=== PATIENT | male | born 1955 | race Two or more races ===

== ENCOUNTER 2019-02-25 09:50 | Day surgery (SDC) | payer BC ==
[~2019-02-25 09:50] MED LIST: PROPOFOL INJ 200 MG/20 ML VIAL IV ONE
[2019-02-25 11:04] VITALS: BP 121/66
--- NOTE | 2019-02-25 12:39 | Operative Report ---
Operative Report DATE OF SURGERY: 02/25/19 Operative Report: The risks, benefits and alternatives of the procedure including the risk of bleeding, perforation requiring surgery have been explained to the patient in detail and informed consent has been obtained. The patient is placed in the left, lateral decubital position. Timeout was called. Propofol medication is administered. Rectal examination is done which did not reveal any masses, tears or fissures. An Olympus videoscope was introduced into the patient's rectum. Scope was then carefully advanced all the way to the cecum. The cecum was identified by the usual anatomical landmarks including the ileocecal valve as well as the appendiceal office. Photodocumentation is obtained. The scope was then sequentially pulled back via the various segments of the colon including the ascending colon, hepatic flexure, transverse colon, splenic flexure, desce nding colon and finally into the rectosigmoid portions of the colon. Retroflexion maneuvers performed. PREOPERATIVE DIAGNOSIS: Colorectal cancer screening POSTOPERATIVE DIAGNOSIS: Cecal polyp in the colon removed via snare polypectomy and retrieved. Internal hemorrhoids OPERATION: Colonoscopy with snare polypectomy SURGEON: ANTONETTE SERRANO ANESTHESIA: LMAC TISSUE REMOVED OR ALTERED: As noted above. COMPLICATIONS: None. ESTIMATED BLOOD LOSS: None. INTRAOPERATIVE FINDINGS: As noted above. PROCEDURE: Patient tolerated the procedure well. No immediate postprocedure complications are noted. Patient is discharged in good condition. Discharge date 02/25/2019. Discharge diet: Regular. Discharge activity: Regular. 2 to 3-week follow-up to discuss findings. Patient is instructed to call the office or proceed to the emergency room should there be any further problems or questions. Wait on the pathology. 5-year surveillance colonoscopy.
== END 2019-02-25 11:04 | disposition home or self-care (01) ==
LOC: END 09:50
PROVIDERS: ATTEND Internal Medicine Gastroenterology
DX: Z12.11 Encounter for screening for malignant neoplasm of colon (principal); D12.0 Benign neoplasm of cecum; Z79.899 Other long term (current) drug therapy; K64.8 Other hemorrhoids
CPT/HCPCS: 45385; 82962; 88305 ×2; J2704; 811

== ENCOUNTER 2019-10-08 16:45 | Emergency (ER) | payer BC ==
[2019-10-08] MEDS ORDERED: HYDROCODONE/ACETAMINOPHEN 5-325 MG TABLET PO ONE (17:16)
[2019-10-08] MEDS ORDERED: DIPH/PERTUSS(ACELL)/TETANUS VAC/PF 0.5 ML SYR (>=10YO) IM ONE (17:16)
--- NOTE | 2019-10-08 17:20 | ER Document Report ---
ED Medical Screen (RME) - General Chief Complaint: Laceration Stated Complaint: FINGER LACERATION Time Seen by Provider: 10/08/19 17:03 Primary Care Provider: CECILY LOPEZ MD [Primary Care Provider] - Follow up as needed Mode of Arrival: Ambulatory Information source: Patient Notes: HPI; 64-year-old male past medical history significant for diabetes presents to the emergency room with a laceration to his left middle finger. 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 Unknown last tetanus shot. Patient is right-handed. Bleeding persistent. No medications for symptoms. Information was obtained through bead forming machine operator #[id number] PE: Alert and oriented x3, moderate distress noted. Lungs: Clear to auscultation without rales, rhonchi, wheezes. Heart: Tachycardic without murmurs, rubs, gallops. Positive radial pulse. Unable to fully evaluate wound in triage. Eating persistent. I have greeted and performed a rapid initial assessment of this patient. A comprehensive ED assessment and evaluation of the patient, analysis of test results and completion of the medical decision making process will be conducted by additional ED providers. I have specifically instructed the patient or family members with the patient to immediately return to any nursing staff should anything change in the patient's condition or with their chief complaint. TRAVEL OUTSIDE OF THE [place] IN LAST 30 DAYS: No - Related Data Allergies/Adverse Reactions: No Known Allergies Allergy (Unverified 02/25/19 10:05) Past Medical History - Social History Frequency of alcohol use: None Drug Abuse: None - Past Medical History Cardiac Medical History: Reports: Hx Hypertension Denies: Hx Coronary Artery Disease, Hx Heart Attack Pulmonary Medical History: Denies: Hx Asthma, Hx Bronchitis, Hx COPD, Hx Pneumonia Neurological Medical History: Denies: Hx Cerebrovascular Accident, Hx Seizures Endocrine Medical History: Reports: Hx Diabetes Mellitus Type 2 Musculoskeltal Medical History: Denies Hx Arthritis - Immunizations Hx Diphtheria, Pertussis, Tetanus Vaccination: No Physical Exam - Vital signs Vitals: Temp Pulse Resp BP Pulse Ox 98.5 F 103 H 20 135/80 H 96 10/08/19 16:51 10/08/19 16:51 10/08/19 16:51 10/08/19 16:51 10/08/19 16:51 Course - Vital Signs Vital signs: Temp Pulse Resp BP Pulse Ox 98.5 F 103 H 20 135/80 H 96 10/08/19 17:07 10/08/19 16:51 10/08/19 16:51 10/08/19 16:51 10/08/19 16:51 Doctor's Discharge - Discharge Referrals: CECILY LOPEZ MD [Primary Care Provider] - Follow up as needed
--- NOTE | 2019-10-08 17:49 | RADIOLOGY REPORT (SQ) ---
EXAM DESCRIPTION: FINGER LEFT IMAGES COMPLETED DATE/TIME: 10/08/2019 5:28 pm REASON FOR STUDY: laceration left middle finger COMPARISON: None. NUMBER OF VIEWS: Three views. TECHNIQUE: AP, lateral, and oblique images acquired of the left third finger. LIMITATIONS: None. FINDINGS: MINERALIZATION: Normal. BONES: No acute fracture or dislocation. No worrisome bone lesions. SOFT TISSUES: No soft tissue swelling. No foreign body. OTHER: No other significant finding. IMPRESSION: 1. NO RADIOGRAPHIC EVIDENCE OF ACUTE INJURY. 2. No opaque foreign body. TECHNICAL DOCUMENTATION: JOB ID: [id number] 2010 [employer]- All Rights Reserved Reading location - IP/workstation name: [email or web address]
--- NOTE | 2019-10-08 18:02 | ER Document Report ---
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 Small amount of bleeding noted. Pt rates pain at 4 out of 5. Color WNL, cap refill < 3 seconds. Pt AOX4, NAD. respirations e/u. Medical hx: DM2, NKDA my notes 64-year-old Maltese male arrives with chief complaint of laceration to his left middle finger pad as he was cutting some hedges and bushes with his tremor. He accidentally cut his tip of his finger and to parallel lacerations of his pad and nail around 1.5 cm length each. Bleeding is controlled by time of arrival. Patient has full range of motion and good sensation to all extremities including his injured finger. Patient reports he is up-to-date on his shots like tetanus. TRAVEL OUTSIDE OF THE [place] IN LAST 30 DAYS: No - HPI Onset: Just prior to arrival Onset/Duration: Sudden, Persistent Quality of pain: Achy Severity: Mild Pain Level: 1 Associated symptoms: None Exacerbated by: Denies Relieved by: Denies Similar symptoms previously: No Recently seen / treated by doctor: No - Related Data Allergies/Adverse Reactions: No Known Allergies Allergy (Verified 10/08/19 17:52) Past Medical History - General Information source: Patient - Social History Smoking Status: Never Smoker Cigarette use (# per day): No Chew tobacco use (# tins/day): No Smoking Education Provided: No Frequency of alcohol use: None Drug Abuse: None Lives with: Family Family History: Reviewed & Not Pertinent Patient has suicidal ideation: No Patient has homicidal ideation: No - Past Medical History Cardiac Medical History: Reports: Hx Hypertension Denies: Hx Coronary Artery Disease, Hx Heart Attack Pulmonary Medical History: Denies: Hx Asthma, Hx Bronchitis, Hx COPD, Hx Pneumonia Neurological Medical History: Denies: Hx Cerebrovascular Accident, Hx Seizures Endocrine Medical History: Reports: Hx Diabetes Mellitus Type 2 Musculoskeletal Medical History: Denies Hx Arthritis - Immunizations Hx Diphtheria, Pertussis, Tetanus Vaccination: No Review of Systems - Review of Systems Constitutional: No symptoms reported EENT: No symptoms reported Cardiovascular: No symptoms reported Respiratory: No symptoms reported Gastrointestinal: No symptoms reported Genitourinary: No symptoms reported Male Genitourinary: No symptoms reported Musculoskeletal: No symptoms reported Skin: See HPI, Other - laceration 1.5 cm parallel of pad 3rd l finger Hematologic/Lymphatic: No symptoms reported Neurological/Psychological: No symptoms reported Physical Exam - Vital signs Vitals: Temp Pulse Resp BP Pulse Ox 98.5 F 103 H 20 135/80 H 96 10/08/19 16:51 10/08/19 16:51 10/08/19 16:51 10/08/19 16:51 10/08/19 16:51 Interpretation: Tachycardic - General General appearance: Alert - HEENT Head: Normocephalic, Atraumatic Eyes: Normal Pupils: PERRL Pharynx: Normal Neck: Normal - Respiratory Respiratory status: No respiratory distress Chest status: Nontender Breath sounds: Normal Chest palpation: Normal - Cardiovascular Rhythm: Regular Heart sounds: Normal auscultation Murmur: No - Abdominal Inspection: Normal Distension: No distension Bowel sounds: Normal Tenderness: Nontender Organomegaly: No organomegaly - Rectal Stool: Other - deferred - Genitourinary Tenderness: Other - deferred - Back Back: Normal - Extremities General upper extremity: Tender, Other - other fingers wnl ; 3rd as per hpi - Neurological Neuro grossly intact: Yes Cognition: Normal Orientation: AAOx4 Luiz Coma Scale Eye Opening: Spontaneous Luiz Coma Scale Verbal: Oriented Luiz Coma Scale Motor: Obeys Commands Luiz Coma Scale Total: 15 Speech: Normal Motor strength normal: LUE, RUE, LLE, RLE Sensory: Normal - Psychological Associated symptoms: Normal affect - Skin Skin Temperature: Warm Skin Moisture: Dry Course - Vital Signs Vital signs: Temp Pulse Resp BP Pulse Ox 98.5 F 103 H 20 135/80 H 96 10/08/19 17:07 10/08/19 16:51 10/08/19 16:51 10/08/19 16:51 10/08/19 16:51 Procedures - Laceration/Wound Repair Left 3rd digit Time completed: 19:58 Wound length (cm): 1.5 Wound's Depth, Shape: Linear Laceration pre-procedure: Shur-Clens applied, Other - hydrogen peroxide used to clean wound Volume Anesthetic (mLs): 0 Wound explored: No foreign body removed Irrigated w/ Saline (mLs): 0 Wound Repaired With: Steri-strips, Dermabond Post-procedure wound care: Sterile dressing applied Post-procedure NV exam normal: Yes Complications: No Critical Care Note - Critical Care Note Total time excluding time spent on procedures (mins): 90 Discharge - Discharge Clinical Impression: Finger laceration Qualifiers: Encounter type: initial encounter Finger: middle finger Damage to nail status: with damage Foreign body presence: without foreign body Laterality: left Qualified Code(s): S61.313A - Laceration without foreign body of left middle finger with damage to nail, initial encounter Condition: Good Disposition: HOME, SELF-CARE Instructions: Tetanus Immunization Given (OM) Additional Instructions: Keep wound clean and dry return to ER as needed take medicines as directed let Steri-Strips fall off by themselves. For 24 to 48 hours avoid any water getting on any hand use a trash bag around her hand with a rubber band while taking a shower bath. Prescriptions: Cephalexin Monohydrate [Keflex 500 mg Capsule] 500 mg PO BID 5 Days #20 capsule Ibuprofen [Motrin 800 mg Tablet] 800 mg PO TID #30 tab Referrals: CECILY LOPEZ MD [Primary Care Provider] - Follow up as needed
[2019-10-08 20:42] VITALS: BP 124/80
== END 2019-10-08 20:46 | disposition home or self-care (01) ==
LOC: ER 16:45
DX: S61.313A Laceration without foreign body of left middle finger with damage to nail, initial encounter (principal); W29.3XXA Contact with powered garden and outdoor hand tools and machinery, initial encounter; Y93.H2 Activity, gardening and landscaping; Y92.009 Unspecified place in unspecified non-institutional (private) residence as the place of occurrence of the external cause; I10 Essential (primary) hypertension; Z23 Encounter for immunization
CPT/HCPCS: 90471; 90715; 99284

== ENCOUNTER 2020-02-19 15:46 | Emergency (ER) | payer BC ==
--- NOTE | 2020-02-19 17:37 | ER Document Report ---
ED Medical Screen (RME) - General Chief Complaint: Blurred Vision Stated Complaint: BLURRED VISION Time Seen by Provider: 02/19/20 17:17 Mode of Arrival: Ambulatory Information source: Patient Notes: HPI; 65-year-old male past medical history significant for diabetes Luxembourgish- speaking only presents to the emergency room complaining of right eye blurry vision for the past 5 days with tearing. States he has been seeing floaters. States if he covers his left eye he cannot see anything out of his right eye. He denies any trauma or injury. No use of contacts or glasses. Does not get annual eye exams for his diabetes. States he saw his primary care physician today who told him he needed to see an business operations specialist but did not give him any referrals. He denies any headaches, no chest pain, no shortness of breath, no difficulty breathing. No other complaints. PE: Alert and oriented x3. PERRLA, EOMI lungs: Clear to auscultation without rales, rhonchi, wheezes. Heart: Regular rate rhythm without murmurs, rubs, gallops. History and physical was obtained with the use of boat person through [employer] security advisor #[id number] I have greeted and performed a rapid initial assessment of this patient. A comprehensive ED assessment and evaluation of the patient, analysis of test results and completion of the medical decision making process will be conducted by additional ED providers. I have specifically instructed the patient or family members with the patient to immediately return to any nursing staff should anything change in the patient's condition or with their chief complaint. TRAVEL OUTSIDE OF THE [place] IN LAST 30 DAYS: No - Related Data Allergies/Adverse Reactions: No Known Allergies Allergy (Verified 02/19/20 17:15) Past Medical History - Social History Chew tobacco use (# tins/day): No Frequency of alcohol use: None Drug Abuse: None - Past Medical History Cardiac Medical History: Reports: Hx Hypertension Denies: Hx Coronary Artery Disease, Hx Heart Attack Pulmonary Medical History: Denies: Hx Asthma, Hx Bronchitis, Hx COPD, Hx Pneumonia Neurological Medical History: Denies: Hx Cerebrovascular Accident, Hx Seizures Endocrine Medical History: Reports: Hx Diabetes Mellitus Type 2 Musculoskeltal Medical History: Denies Hx Arthritis - Immunizations Hx Diphtheria, Pertussis, Tetanus Vaccination: No Physical Exam - Vital signs Vitals: Temp Pulse Resp BP Pulse Ox 98.7 F 98 20 121/76 98 02/19/20 15:52 02/19/20 15:52 02/19/20 15:52 02/19/20 15:52 02/19/20 15:52 Course - Vital Signs Vital signs: Temp Pulse Resp BP Pulse Ox 98.7 F 98 20 121/76 98 02/19/20 15:52 02/19/20 15:52 02/19/20 15:52 02/19/20 15:52 02/19/20 15:52
--- NOTE | 2020-02-19 20:04 | RADIOLOGY REPORT (SQ) ---
EXAM DESCRIPTION: CT HEAD WITHOUT IMAGES COMPLETED DATE/TIME: 02/19/2020 7:44 pm REASON FOR STUDY: blurry vision COMPARISON: None. TECHNIQUE: Axial images acquired through the brain without intravenous contrast. Images reviewed wit h bone, brain and subdural windows. Images stored on PACS. All CT scanners at this facility use dose modulation, iterative reconstruction, and/or weight based d osing when appropriate to reduce radiation dose to as low as reasonably achievable (ALARA). [facility]: Dose Right [facility]: CareDose [facility]: Dose Right [facility]: Teradose 4D [facility]: Smart Red [facility] RADIATION DOSE: CT Rad equipment meets quality standard of care and radiation dose reduction techniq ues were employed. CTDIvol: 53.2 mGy. DLP: 1017 mGy-cm.. LIMITATIONS: None. FINDINGS: VENTRICLES: Normal size and contour. CEREBRUM: No masses. No hemorrhage. No midline shift. Age appropriate white matter. No evidence for a cute infarction. CEREBELLUM: No masses. No hemorrhage. No alteration of density. No evidence for acute infarction. EXTRA-AXIAL SPACES: No fluid collections. ORBITS AND GLOBE: No intra- or extraconal masses. Normal contour of globe without masses. CALVARIUM: No fracture. PARANASAL SINUSES: No fluid or mucosal thickening. SOFT TISSUES: No mass or hematoma. OTHER: No other significant finding. IMPRESSION: NO ACUTE INTRACRANIAL FINDINGS. EVIDENCE OF ACUTE STROKE: NO. TECHNICAL DOCUMENTATION: JOB ID: [id number] Quality ID # [id number]: Final reports with documentation of one or more dose reduction techniques (e.g., Au tomated exposure control, adjustment of the mA and/or kV according to patient size, use of iterative reconstruction technique) 2010 [employer]- All Rights Reserved Reading location - IP/workstation name: [email or web address]
--- NOTE | 2020-02-20 01:48 | ER Document Report ---
ED General - General Chief Complaint: Blurred Vision Stated Complaint: BLURRED VISION Time Seen by Provider: 02/19/20 17:17 Primary Care Provider: LEXI GRAJEDA DO [ACTIVE STAFF] - 02/20/20 Mode of Arrival: Ambulatory TRAVEL OUTSIDE OF THE [place] IN LAST 30 DAYS: No - HPI Notes: Patient is a 65-year-old male with a history of DM II who presents with worsening blurred vision in the right eye for the past 5 days. Patient reports black floaters, lacrimation and mild itchy. He denies pain, eye redness and foreign body sensation. He has been using eye drops for eye redness with no relief. Patient denies left eye symptoms, TRUJILLO, nausea, vomiting, chest pain and shortness of breath. He does not wear corrective lenses. Patient has not seen an structural iron erector before. He takes metformin, glipizide and trulicity for his DM II. Patient denies tobacco, alcohol and recreational drug use. Patient's PCP is Dr. Moises Bruce. - Related Data Allergies/Adverse Reactions: No Known Allergies Allergy (Verified 02/19/20 17:15) Past Medical History - General Information source: Patient - Social History Smoking Status: Never Smoker Chew tobacco use (# tins/day): No Frequency of alcohol use: None Drug Abuse: None Family History: Reviewed & Not Pertinent Patient has homicidal ideation: No - Past Medical History Cardiac Medical History: Reports: Hx Hypertension Denies: Hx Coronary Artery Disease, Hx Heart Attack Pulmonary Medical History: Denies: Hx Asthma, Hx Bronchitis, Hx COPD, Hx Pneumonia Neurological Medical History: Denies: Hx Cerebrovascular Accident, Hx Seizures Endocrine Medical History: Reports: Hx Diabetes Mellitus Type 2 Musculoskeletal Medical History: Denies Hx Arthritis - Immunizations Hx Diphtheria, Pertussis, Tetanus Vaccination: No Review of Systems - Review of Systems Constitutional: No symptoms reported EENT: See HPI Cardiovascular: No symptoms reported Respiratory: No symptoms reported Gastrointestinal: No symptoms reported Genitourinary: No symptoms reported Male Genitourinary: No symptoms reported Musculoskeletal: No symptoms reported Skin: No symptoms reported Hematologic/Lymphatic: No symptoms reported Neurological/Psychological: No symptoms reported Physical Exam - Vital signs Vitals: Temp Pulse Resp BP Pulse Ox 98.7 F 98 20 121/76 98 02/19/20 15:52 02/19/20 15:52 02/19/20 15:52 02/19/20 15:52 02/19/20 15:52 - Notes Notes: PHYSICAL EXAMINATION: VITALS: Vitals reviewed and within normal limits. GENERAL: Well-appearing, well-nourished and in no acute distress. HEAD: Atraumatic, normocephalic. EYES: Pupils equal, round, and reactive to light, extraocular movements intact, sclera anicteric, conjunctiva are normal. Fundoscopic exam shows red reflex bilaterally. LUNGS: Breath sounds clear to auscultation bilaterally and equal. No wheezes rales or rhonchi. HEART: Regular rate and rhythm without murmurs. ABDOMEN: Soft, nontender, normoactive bowel sounds. No guarding, no rebound. No masses appreciated. NEURO: A/O x3. GCS 15. CN II-XII intact. Normal brachial and patellar reflexes bilaterally. 5/5 strength to bilateral UE and LE. Sensation intact. No pronator drift. Normal nose to point testing. Normal gait and able to toe-walk and heel- walk. Normal speech. PSYCH: Normal mood, normal affect. SKIN: Warm, Dry, normal turgor, no rashes or lesions noted. - HEENT Visual acuity- Right eye: 0 Visual acuity- Left eye: 20/70 Visual acuity- Both eyes: 20/50 Corrective lenses worn: No Course - Re-evaluation Re-evalutation: Patient is 65-year-old male with a history of DM II who presents with worsening right eye blurred vision for the past 5 days with black floaters. Vital signs are within normal limits. On exam, PERRLA and EOMI, conjunctive are normal bilaterally. Head CT negative with no signs of stroke or hemorrhage. 02/20/20 02:34 I consulted my supervising physician, Dr. Limon, and she recommends ordering CBC, CMP, UA, EKG and repeating the visual acuity in the R eye as well as a full neuro exam. 02/20/20 03:00 Normal neuro exam: CN II-XII intact. Normal strength and sens ation. Normal reflexes and cerebellar testing. 02/20/20 04:27 Visual acuity retested and patient has vision of 20/70 in both eyes and 20/50 of the left eye. Patient was unable to see the eye chart with his right eye alone. With his left eye covered, he was able to see my face mask slightly at closer distances but couldn't see once I stepped farther away. 02/20/20 05:17 CBC and CMP are unremarkable and within normal limits. Glucose of 129. Based on his presentation and work-up I am concerned for a central artery occlusion. However, patient symptoms occurred 5 days ago which limits available treatment. Patient will be discharged with prompt follow-up to ophthalmology for further work-up of his blurred vision. I discussed the importance of seeing ophthalmology with the patient and he understands. He agrees with the plan. - Vital Signs Vital signs: Temp Pulse Resp BP Pulse Ox 98.4 F 90 17 126/83 H 97 02/20/20 05:25 02/20/20 05:25 02/20/20 05:25 02/20/20 05:25 02/20/20 05:25 - Laboratory Result Diagrams: 02/20/20 04:15 02/20/20 04:15 Laboratory results interpreted by me: 02/20/20 04:15 BUN 25 H Glucose 129 H - EKG Interpretation by Me Additional EKG results interpreted by me: Sinus rhythm with a rate of 87. QTc prolonged at 501. Left axis deviation. No T wave inversions or ST segment changes in consecutive leads. 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 Please call your primary physician or return to the emergency department if your symptoms worsen, you start vomiting, feel dizzy, or l ightheaded. Continue to manage her diabetes as you have been. Referrals: LEXI GRAJEDA DO [ACTIVE STAFF] - 02/20/20
[2020-02-20 04:40] LABS: ABSOLUTE EOSINOPHILS # (AUTO) 0.1 10^3/uL (0.0-0.6); ABSOLUTE LYMPHOCYTES (AUTO) 2.4 10^3/uL (0.5-4.7); ABSOLUTE MONOCYTES (AUTO) 0.7 10^3/uL (0.1-1.4); ABSOLUTE NEUT (AUTO) 2.8 10^3/uL (1.7-8.2); BASOPHILS % (AUTO) 0.6 % (0-2); EOSINOPHILS % (AUTO) 1.6 % (0-6); HEMATOCRIT 44.8 % (37.9-51.0); HEMOGLOBIN 15.3 g/dL (13.5-17.0); LYMPHOCYTES % (AUTO) 39.5 % (13-45); MEAN CORPUSCULAR HEMOGLOBIN 30.9 pg (27.0-33.4); MEAN CORPUSCULAR HGB CONC 34.2 g/dL (32.0-36.0); MEAN CORPUSCULAR VOLUME 91 fl (80-97); MONOCYTES % (AUTO) 10.9 % (3-13); PLATELET COUNT 179 10^3/uL (150-450); RED BLOOD COUNT 4.95 10^6/uL (4.35-5.55); RED CELL DISTRIBUTION WIDTH 13.9 % (11.5-14.0); SEGMENTED NEUTROPHILS % (AUTO) 47.4 % (42-78); TOTAL CELLS COUNTED % (AUTO) 100 %
[2020-02-20 04:53] LABS: ALBUMIN 4.2 g/dL (3.5-5.0); ALKALINE PHOSPHATASE 113 U/L (38-126); ANION GAP 10 (5-19); ASPARTATE AMINO TRANSFERASE 52 U/L (17-59); BILIRUBIN,DIRECT 0.2 mg/dL (0.0-0.4); BILIRUBIN,TOTAL 0.9 mg/dL (0.2-1.3); BLOOD UREA NITROGEN 25 mg/dL (7-20); CALCIUM 9.6 mg/dL (8.4-10.2); CARBON DIOXIDE 24 mmol/L (22-30); CHLORIDE 106 mmol/L (98-107); GLUCOSE 129 mg/dL (75-110); POTASSIUM 4.5 mmol/L (3.6-5.0); TOTAL PROTEIN 7.1 g/dL (6.3-8.2)
[2020-02-20 05:37] VITALS: BP 126/83
--- NOTE | 2020-02-20 08:58 | EKG REPORT ---
SEVERITY:- ABNORMAL ECG - SINUS RHYTHM NONSPECIFIC IVCD WITH LAD : Confirmed by: Rome [place] 20-Feb-2020 08:57:35
== END 2020-02-20 05:37 | disposition home or self-care (01) ==
LOC: ER 15:46
DX: H53.8 Other visual disturbances (principal); E11.39 Type 2 diabetes mellitus with other diabetic ophthalmic complication; I10 Essential (primary) hypertension
CPT/HCPCS: 36415; 70450; 80053; 85025; 93005; 93010; 99285